=== PATIENT | male | born 1950 | race Caucasian/White ===

== ENCOUNTER 2021-04-21 22:33 | Inpatient (IN) ==
[2021-04-22] MEDS ORDERED: Isovue-370 500 ML BOTTLE IVP ONE ×2 (00:13→02:13)
[2021-04-22 01:45] LABS: Basophils % 0.4 %; Eosinophils % 0.3 %; Hematocrit 49.6 % (37.5-50.1); Hemoglobin 16.8 g/dL (12.9-16.9); Immature Granulocytes % 0.6 % (0-4); Lymphocytes % 8.9 %; Mean Corpuscular HGB Conc 33.9 g/dL (31.6-35.5); Mean Corpuscular Hemoglobin 30.4 pg (28.0-33.3); Mean Corpuscular Volume 89.7 fL (83.0-100.0); Mean Platelet Volume 8.6 fL (9.4-12.4); Monocytes # 0.8 K/mcL (0.0-1.3); Monocytes % 7.1 %; Neutrophils # 9.2 K/mcL (1.6-8.9); Platelet Count 208 K/mcL (140-400); Red Blood Count 5.53 M/mcL (4.19-5.50); Red Cell Distribution Width 12.9 % (11.5-14.5); Segmented Neutrophils % 82.7 %; White Blood Count 11.1 K/mcL (4.3-11.1)
[2021-04-22 02:05] LABS: INR 1.4; Prothrombin Time 15.3 Seconds (9.4-12.1)
[2021-04-22 02:09] LABS: Activated Partial Thrombo Time 31.9 Seconds (26.0-36.0)
[2021-04-22 02:16] LABS: VBG HCO3 26 mEq/L (21-27); VBG PCO2 42 mmHg (41-51); VBG PO2 85 mmHg (25-50)
[2021-04-22 03:08] LABS: Alanine Aminotransferase 33 Units/L (7-52); Alkaline Phosphatase 106 Units/L (34-104); Aspartate Amino Transferase 24 Units/L (13-39); BUN/Creatinine Ratio 26 (6-26); Bilirubin,Direct 0.9 mg/dL (0.0-0.2); Bilirubin,Indirect 0.7 mg/dL (0.0-1.0); Bilirubin,Total 1.6 mg/dL (0.3-1.0); Blood Urea Nitrogen 34 mg/dL (8-23); Calcium 9.1 mg/dL (8.6-10.3); Carbon Dioxide 23 mEq/L (23-29); Chloride 100 mEq/L (98-107); Glucose 181 mg/dL (70-105); Osmolality,Calculated 288 (280-300); Potassium 4.3 mEq/L (3.5-5.1); Sodium 133 mEq/L (136-145); Total Protein 7.1 g/dL (6.4-8.9); Troponin I < 0.03 ng/mL (< 0.04); eGFR For African Americans > 60 (> 60); eGFR For Non-African Americans 55 (> 60)
[2021-04-22 03:52] LABS: Albumin 3.1 g/dL (3.5-5.7); Albumin/Globulin Ratio 0.8 (1.1-2.2)
[2021-04-22] MEDS ORDERED: Naloxone 0.4 MG/ML INJ IVP PRN (05:29)
[2021-04-22] MEDS ORDERED: *HR* Promethazine 25 MG/ML VIAL IM PRN (05:29)
[2021-04-22] MEDS ORDERED: Melatonin 3 MG TABLET PO PRN (05:29)
[2021-04-22] MEDS ORDERED: Ondansetron 4 MG/2 ML VIAL IVP PRN (05:29)
[2021-04-22] MEDS ORDERED: Remdesivir 200 MG in 0.9 % Sodium Chloride 100 ML IVPB ONE (07:00)
[2021-04-22] MEDS: *HR* Enoxaparin 40 MG/0.4 ML SYRINGE SQ SCH (07:22)
[2021-04-22] MEDS ORDERED: Dexamethasone Sodium Phos/PF 10 MG/ML VIAL IVP SCH (09:00)
[2021-04-22 09:19] LABS: Estimated Average Glucose 157 mg/dl; Hemoglobin A1C 7.1 %
[2021-04-22 12:55] LABS: C-Reactive Protein 300 mg/L (Less than 10)
[2021-04-22] MEDS ORDERED: Dexamethasone Sodium Phos/PF 10 MG/ML VIAL IVP ONE (15:15)
[2021-04-23] MEDS: *HR* Enoxaparin 40 MG/0.4 ML SYRINGE SQ SCH (06:02)
[2021-04-23] MEDS: Remdesivir 100 MG in 0.9 % Sodium Chloride 100 ML IVPB SCH (06:02)
[2021-04-23] MEDS: Dexamethasone Sodium Phos/PF 10 MG/ML VIAL IVP SCH (09:29)
[2021-04-23 09:53] LABS: Basophils % 0.2 %; Hematocrit 50.4 % (37.5-50.1); Hemoglobin 16.9 g/dL (12.9-16.9); Immature Granulocytes % 0.8 % (0-4); Lymphocytes # 0.7 K/mcL (0.6-4.6); Lymphocytes % 5.3 %; Mean Corpuscular HGB Conc 33.5 g/dL (31.6-35.5); Mean Corpuscular Hemoglobin 30.3 pg (28.0-33.3); Mean Corpuscular Volume 90.3 fL (83.0-100.0); Mean Platelet Volume 8.8 fL (9.4-12.4); Monocytes # 0.7 K/mcL (0.0-1.3); Monocytes % 5.6 %; Neutrophils # 11.1 K/mcL (1.6-8.9); Platelet Count 252 K/mcL (140-400); Red Blood Count 5.58 M/mcL (4.19-5.50); Red Cell Distribution Width 12.9 % (11.5-14.5); Segmented Neutrophils % 88.1 %; White Blood Count 12.6 K/mcL (4.3-11.1)
[2021-04-23 09:57] LABS: INR 1.3; Prothrombin Time 14.4 Seconds (9.4-12.1)
[2021-04-23 10:36] LABS: Albumin 3.1 g/dL (3.5-5.7); Albumin/Globulin Ratio 0.8 (1.1-2.2); Bilirubin,Direct 0.4 mg/dL (0.0-0.2); Bilirubin,Indirect 0.4 mg/dL (0.0-1.0); Bilirubin,Total 0.8 mg/dL (0.3-1.0); Total Protein 7.1 g/dL (6.4-8.9)
[2021-04-23 11:37] LABS: Alanine Aminotransferase 50 Units/L (7-52); Albumin/Globulin Ratio 0.7 (1.1-2.2); Alkaline Phosphatase 105 Units/L (34-104); Aspartate Amino Transferase 34 Units/L (13-39); BUN/Creatinine Ratio 37 (6-26); Bilirubin,Total 0.8 mg/dL (0.3-1.0); Blood Urea Nitrogen 47 mg/dL (8-23); C-Reactive Protein 274 mg/L (Less than 10); Calcium 9.4 mg/dL (8.6-10.3); Carbon Dioxide 23 mEq/L (23-29); Chloride 101 mEq/L (98-107); Ferritin > 1500 ng/mL (20-250); Globulin 4.1 g/dL (2.4-3.5); Glucose 294 mg/dL (70-105); Lactate Dehydrogenase 297 Units/L (140-271); Magnesium 2.4 mg/dL (1.6-2.6); Osmolality,Calculated 301 (280-300); Potassium 4.5 mEq/L (3.5-5.1); Sodium 134 mEq/L (136-145); Total Protein 7.1 g/dL (6.4-8.9); eGFR For African Americans > 60 (> 60); eGFR For Non-African Americans 56 (> 60)
[2021-04-24 06:31] LABS: Basophils % 0.1 %; Eosinophils % 0.1 %; Hematocrit 51.2 % (37.5-50.1); Hemoglobin 17.4 g/dL (12.9-16.9); Immature Granulocytes % 0.8 % (0-4); Lymphocytes # 0.7 K/mcL (0.6-4.6); Lymphocytes % 5.9 %; Mean Corpuscular Hemoglobin 30.7 pg (28.0-33.3); Mean Corpuscular Volume 90.5 fL (83.0-100.0); Mean Platelet Volume 8.6 fL (9.4-12.4); Monocytes # 0.6 K/mcL (0.0-1.3); Monocytes % 4.8 %; Neutrophils # 10.2 K/mcL (1.6-8.9); Platelet Count 286 K/mcL (140-400); Red Blood Count 5.66 M/mcL (4.19-5.50); Segmented Neutrophils % 88.3 %; White Blood Count 11.6 K/mcL (4.3-11.1)
[2021-04-24] MEDS: *HR* Enoxaparin 40 MG/0.4 ML SYRINGE SQ SCH (06:31)
[2021-04-24] MEDS: Remdesivir 100 MG in 0.9 % Sodium Chloride 100 ML IVPB SCH (06:31)
[2021-04-24 06:54] LABS: Alanine Aminotransferase 53 Units/L (7-52); Albumin 2.9 g/dL (3.5-5.7); Albumin/Globulin Ratio 0.8 (1.1-2.2); Alkaline Phosphatase 98 Units/L (34-104); Aspartate Amino Transferase 25 Units/L (13-39); BUN/Creatinine Ratio 43 (6-26); Bilirubin,Total 0.8 mg/dL (0.3-1.0); Blood Urea Nitrogen 49 mg/dL (8-23); Calcium 9.4 mg/dL (8.6-10.3); Carbon Dioxide 25 mEq/L (23-29); Chloride 102 mEq/L (98-107); Globulin 3.8 g/dL (2.4-3.5); Glucose 259 mg/dL (70-105); Osmolality,Calculated 300 (280-300); Potassium 4.5 mEq/L (3.5-5.1); Sodium 134 mEq/L (136-145); Total Protein 6.7 g/dL (6.4-8.9); eGFR For African Americans > 60 (> 60); eGFR For Non-African Americans > 60 (> 60)
[2021-04-24] MEDS: Dexamethasone Sodium Phos/PF 10 MG/ML VIAL IVP SCH (08:01)
[2021-04-24] MEDS ORDERED: Saline Nasal Spray 44 ML BOTTLE NS PRN (15:55)
[2021-04-24] MEDS ORDERED: Saliva Stimulant 44.3ml BOTTLE PO PRN (15:56)
[2021-04-24] MEDS ORDERED: Dextrose Gel 15 GM/37.5 ML TUBE PO PRN ×2 (19:24)
[2021-04-24] MEDS ORDERED: *HR* Dextrose 50 % in Water (Syg) 50 ML SYRINGE IVP PRN (19:24)
[2021-04-24] MEDS ORDERED: D5% in Water 1,000 ML IVC PRN (19:24)
[2021-04-24] MEDS: Insulin DETEMIR 100 UNIT/ML X5UNITS SUBQ SCH (20:46)
[2021-04-24 21:33] LABS: Estimated Average Glucose 163 mg/dl; Hemoglobin A1C 7.3 %
[2021-04-25 03:47] LABS: Basophils % 0.2 %; Eosinophils % 0.4 %; Hematocrit 53.7 % (37.5-50.1); Hemoglobin 18.4 g/dL (12.9-16.9); Immature Granulocytes % 0.7 % (0-4); Lymphocytes # 0.8 K/mcL (0.6-4.6); Lymphocytes % 7.6 %; Mean Corpuscular HGB Conc 34.3 g/dL (31.6-35.5); Mean Corpuscular Volume 90.6 fL (83.0-100.0); Mean Platelet Volume 8.8 fL (9.4-12.4); Monocytes # 0.6 K/mcL (0.0-1.3); Monocytes % 6.1 %; Neutrophils # 8.6 K/mcL (1.6-8.9); Platelet Count 208 K/mcL (140-400); Red Blood Count 5.93 M/mcL (4.19-5.50); Red Cell Distribution Width 12.7 % (11.5-14.5); White Blood Count 10.1 K/mcL (4.3-11.1)
[2021-04-25 04:05] LABS: Alanine Aminotransferase 46 Units/L (7-52); Albumin 2.9 g/dL (3.5-5.7); Albumin/Globulin Ratio 0.8 (1.1-2.2); Alkaline Phosphatase 97 Units/L (34-104); Aspartate Amino Transferase 17 Units/L (13-39); BUN/Creatinine Ratio 40 (6-26); Bilirubin,Total 0.9 mg/dL (0.3-1.0); Blood Urea Nitrogen 46 mg/dL (8-23); Calcium 9.1 mg/dL (8.6-10.3); Carbon Dioxide 25 mEq/L (23-29); Chloride 102 mEq/L (98-107); Globulin 3.8 g/dL (2.4-3.5); Glucose 255 mg/dL (70-105); Osmolality,Calculated 299 (280-300); Potassium 4.6 mEq/L (3.5-5.1); Sodium 134 mEq/L (136-145); Total Protein 6.7 g/dL (6.4-8.9); eGFR For African Americans > 60 (> 60); eGFR For Non-African Americans > 60 (> 60)
[2021-04-25] MEDS: *HR* Enoxaparin 40 MG/0.4 ML SYRINGE SQ SCH (05:48)
[2021-04-25] MEDS: Remdesivir 100 MG in 0.9 % Sodium Chloride 100 ML IVPB SCH (05:48)
[2021-04-25] MEDS: Dexamethasone Sodium Phos/PF 10 MG/ML VIAL IVP SCH (09:56)
[2021-04-25] MEDS: Cholecalciferol (D-3) 1,000 UNIT (25MCG) TABLET PO SCH (09:57)
[2021-04-25] MEDS: Insulin LISPRO 300 UNITS/3 ML VIAL SUBQ SCH ×3 (10:07→22:22)
[2021-04-25] MEDS: Insulin DETEMIR 100 UNIT/ML X5UNITS SUBQ SCH ×2 (10:11→22:22)
[2021-04-26 04:18] LABS: Basophils % 0.2 %; Eosinophils # 0.1 K/mcL (0.0-0.6); Eosinophils % 0.4 %; Hemoglobin 19.1 g/dL (12.9-16.9); Immature Granulocytes % 0.9 % (0-4); Lymphocytes # 0.9 K/mcL (0.6-4.6); Lymphocytes % 7.2 %; Mean Corpuscular HGB Conc 33.5 g/dL (31.6-35.5); Mean Corpuscular Hemoglobin 30.2 pg (28.0-33.3); Mean Corpuscular Volume 90.3 fL (83.0-100.0); Mean Platelet Volume 8.6 fL (9.4-12.4); Monocytes # 0.5 K/mcL (0.0-1.3); Monocytes % 4.4 %; Neutrophils # 10.4 K/mcL (1.6-8.9); Platelet Count 248 K/mcL (140-400); Red Blood Count 6.32 M/mcL (4.19-5.50); Red Cell Distribution Width 12.8 % (11.5-14.5); Segmented Neutrophils % 86.9 %; White Blood Count 11.9 K/mcL (4.3-11.1)
[2021-04-26 04:22] LABS: Hematocrit 57.1 % (37.5-50.1)
[2021-04-26 04:38] LABS: BUN/Creatinine Ratio 36 (6-26); Blood Urea Nitrogen 44 mg/dL (8-23); Calcium 9.2 mg/dL (8.6-10.3); Carbon Dioxide 24 mEq/L (23-29); Chloride 103 mEq/L (98-107); Glucose 199 mg/dL (70-105); Osmolality,Calculated 297 (280-300); Potassium 4.6 mEq/L (3.5-5.1); Sodium 135 mEq/L (136-145); eGFR For African Americans > 60 (> 60); eGFR For Non-African Americans 59 (> 60)
[2021-04-26] MEDS: Remdesivir 100 MG in 0.9 % Sodium Chloride 100 ML IVPB SCH (06:40)
[2021-04-26] MEDS: *HR* Enoxaparin 40 MG/0.4 ML SYRINGE SQ SCH (06:40)
[2021-04-26] MEDS: Insulin LISPRO 300 UNITS/3 ML VIAL SUBQ SCH ×3 (07:44→16:29)
[2021-04-26] MEDS: Cholecalciferol (D-3) 1,000 UNIT (25MCG) TABLET PO SCH (07:45)
[2021-04-26] MEDS: Dexamethasone Sodium Phos/PF 10 MG/ML VIAL IVP SCH (07:45)
[2021-04-26] MEDS: Insulin DETEMIR 100 UNIT/ML X5UNITS SUBQ SCH ×2 (07:49→20:38)
[2021-04-27 01:30] LABS: Hemoglobin 19.9 g/dL (12.9-16.9); Mean Corpuscular HGB Conc 34.2 g/dL (31.6-35.5); Mean Corpuscular Volume 90.7 fL (83.0-100.0); Mean Platelet Volume 8.7 fL (9.4-12.4); Platelet Count 218 K/mcL (140-400); Red Blood Count 6.42 M/mcL (4.19-5.50); White Blood Count 15.2 K/mcL (4.3-11.1)
[2021-04-27 01:36] LABS: Hematocrit 58.2 % (37.5-50.1)
[2021-04-27 01:41] LABS: INR 1.3; Prothrombin Time 14.1 Seconds (9.4-12.1)
[2021-04-27 01:45] LABS: Alanine Aminotransferase 46 Units/L (7-52); Albumin 3.2 g/dL (3.5-5.7); Albumin/Globulin Ratio 0.9 (1.1-2.2); Alkaline Phosphatase 107 Units/L (34-104); Aspartate Amino Transferase 21 Units/L (13-39); BUN/Creatinine Ratio 38 (6-26); Bilirubin,Direct 0.2 mg/dL (0.0-0.2); Bilirubin,Indirect 0.8 mg/dL (0.0-1.0); Blood Urea Nitrogen 43 mg/dL (8-23); C-Reactive Protein 22 mg/L (Less than 10); Calcium 9.2 mg/dL (8.6-10.3); Carbon Dioxide 23 mEq/L (23-29); Chloride 102 mEq/L (98-107); Globulin 3.5 g/dL (2.4-3.5); Glucose 227 mg/dL (70-105); Magnesium 2.2 mg/dL (1.6-2.6); Osmolality,Calculated 294 (280-300); Phosphorous 3.5 mg/dL (2.7-4.5); Potassium 4.4 mEq/L (3.5-5.1); Sodium 133 mEq/L (136-145); Total Protein 6.7 g/dL (6.4-8.9); eGFR For African Americans > 60 (> 60); eGFR For Non-African Americans > 60 (> 60)
[2021-04-27] MEDS: *HR* Enoxaparin 40 MG/0.4 ML SYRINGE SQ SCH (05:49)
[2021-04-27] MEDS: Insulin LISPRO 300 UNITS/3 ML VIAL SUBQ SCH ×3 (07:56→16:44)
[2021-04-27] MEDS: Dexamethasone Sodium Phos/PF 10 MG/ML VIAL IVP SCH (07:57)
[2021-04-27] MEDS: Insulin DETEMIR 100 UNIT/ML X5UNITS SUBQ SCH ×2 (07:57→21:26)
[2021-04-27] MEDS: Cholecalciferol (D-3) 1,000 UNIT (25MCG) TABLET PO SCH (07:57)
[2021-04-27] MEDS: Multivit/Ca/Min/Fe/FA 1 TAB TABLET PO SCH (13:19)
[2021-04-27] MEDS: Zinc Sulfate 220 MG CAPSULE PO SCH (13:19)
[2021-04-27] MEDS: *HR* Enoxaparin 100 MG/ML SYRINGE SQ SCH (16:44)
[2021-04-28] MEDS: *HR* Enoxaparin 100 MG/ML SYRINGE SQ SCH ×2 (06:04→17:55)
[2021-04-28] MEDS: Dexamethasone Sodium Phos/PF 10 MG/ML VIAL IVP SCH (08:11)
[2021-04-28] MEDS: Insulin DETEMIR 100 UNIT/ML X5UNITS SUBQ SCH ×2 (08:12→20:13)
[2021-04-28] MEDS: Insulin LISPRO 300 UNITS/3 ML VIAL SUBQ SCH ×3 (08:12→17:55)
[2021-04-28] MEDS: Multivit/Ca/Min/Fe/FA 1 TAB TABLET PO SCH (08:13)
[2021-04-28] MEDS: Cholecalciferol (D-3) 1,000 UNIT (25MCG) TABLET PO SCH (08:13)
[2021-04-28] MEDS: Zinc Sulfate 220 MG CAPSULE PO SCH (08:13)
[2021-04-28] MEDS ORDERED: Lidocaine -MPF 1% 5 ML AMPUL INFILT ONE (13:25)
[2021-04-28] MEDS: Pantoprazole 40 MG VIAL IVP SCH (17:54)
[2021-04-29 03:11] LABS: Hemoglobin 21.5 g/dL (12.9-16.9); Mean Corpuscular HGB Conc 34.8 g/dL (31.6-35.5); Mean Corpuscular Hemoglobin 30.5 pg (28.0-33.3); Mean Corpuscular Volume 87.8 fL (83.0-100.0); Mean Platelet Volume 9.1 fL (9.4-12.4); Platelet Count 232 K/mcL (140-400); Red Blood Count 7.04 M/mcL (4.19-5.50); White Blood Count 25.5 K/mcL (4.3-11.1)
[2021-04-29 03:16] LABS: Hematocrit 61.8 % (37.5-50.1)
[2021-04-29 03:29] LABS: BUN/Creatinine Ratio 41 (6-26); Blood Urea Nitrogen 51 mg/dL (8-23); Calcium 9.5 mg/dL (8.6-10.3); Carbon Dioxide 26 mEq/L (23-29); Chloride 101 mEq/L (98-107); Glucose 190 mg/dL (70-105); Magnesium 2.3 mg/dL (1.6-2.6); Osmolality,Calculated 299 (280-300); Potassium 5.4 mEq/L (3.5-5.1); Sodium 135 mEq/L (136-145); eGFR For African Americans > 60 (> 60); eGFR For Non-African Americans 58 (> 60)
[2021-04-29] MEDS: *HR* Enoxaparin 100 MG/ML SYRINGE SQ SCH ×2 (05:46→16:54)
[2021-04-29] MEDS: Cholecalciferol (D-3) 1,000 UNIT (25MCG) TABLET PO SCH (08:32)
[2021-04-29] MEDS: Multivit/Ca/Min/Fe/FA 1 TAB TABLET PO SCH (08:32)
[2021-04-29] MEDS: Zinc Sulfate 220 MG CAPSULE PO SCH (08:32)
[2021-04-29] MEDS: Insulin DETEMIR 100 UNIT/ML X5UNITS SUBQ SCH ×3 (08:32→20:07)
[2021-04-29] MEDS: Insulin LISPRO 300 UNITS/3 ML VIAL SUBQ SCH ×3 (08:32→16:53)
[2021-04-29] MEDS: Pantoprazole 40 MG VIAL IVP SCH (08:33)
[2021-04-29] MEDS: Dexamethasone Sodium Phos/PF 10 MG/ML VIAL IVP SCH (08:33)
[2021-04-29] MEDS: Furosemide 20 MG/2 ML VIAL IVP SCH (14:50)
[2021-04-29] MEDS: Melatonin 3 MG TABLET PO SCH (20:05)
[2021-04-30 04:01] LABS: Hemoglobin 21.3 g/dL (12.9-16.9)
[2021-04-30 04:02] LABS: Mean Corpuscular HGB Conc 34.3 g/dL (31.6-35.5); Mean Corpuscular Hemoglobin 30.1 pg (28.0-33.3); Mean Corpuscular Volume 87.8 fL (83.0-100.0); Mean Platelet Volume 8.9 fL (9.4-12.4); Platelet Count 239 K/mcL (140-400); Red Blood Count 7.07 M/mcL (4.19-5.50)
[2021-04-30 04:04] LABS: Hematocrit 62.1 % (37.5-50.1)
[2021-04-30 04:58] LABS: BUN/Creatinine Ratio 48 (6-26); Blood Urea Nitrogen 60 mg/dL (8-23); Calcium 9.6 mg/dL (8.6-10.3); Carbon Dioxide 28 mEq/L (23-29); Chloride 101 mEq/L (98-107); Glucose 144 mg/dL (70-105); Osmolality,Calculated 299 (280-300); Potassium 5.3 mEq/L (3.5-5.1); Sodium 135 mEq/L (136-145); eGFR For African Americans > 60 (> 60); eGFR For Non-African Americans 57 (> 60)
[2021-04-30] MEDS: *HR* Enoxaparin 100 MG/ML SYRINGE SQ SCH ×2 (05:27→16:55)
[2021-04-30] MEDS: Insulin LISPRO 300 UNITS/3 ML VIAL SUBQ SCH ×3 (07:53→17:09)
[2021-04-30] MEDS: Pantoprazole 40 MG VIAL IVP SCH (08:33)
[2021-04-30] MEDS: Insulin DETEMIR 100 UNIT/ML X5UNITS SUBQ SCH (08:33)
[2021-04-30] MEDS: Furosemide 20 MG/2 ML VIAL IVP SCH (08:34)
[2021-04-30] MEDS: Dexamethasone Sodium Phos/PF 10 MG/ML VIAL IVP SCH (08:34)
[2021-04-30] MEDS: Zinc Sulfate 220 MG CAPSULE PO SCH (08:46)
[2021-04-30] MEDS: Cholecalciferol (D-3) 1,000 UNIT (25MCG) TABLET PO SCH (08:46)
[2021-04-30] MEDS: Multivit/Ca/Min/Fe/FA 1 TAB TABLET PO SCH (08:47)
[2021-04-30] MEDS ORDERED: SODIUM ZIRCONIUM CYCLOSILICATE 5 GM POWD.PACK PO ONE (11:23)
[2021-04-30] MEDS: Calcium Gluconate 1gm/50mL 1 GM/50 ML BAG IVPB SCH ×2 (11:55→12:59)
[2021-04-30] MEDS: Piperacillin/Tazobactam 3.375 GM in 0.9 % Sodium Chloride Mini Bag 100 ML IVPB SCH ×2 (16:56→22:57)
[2021-04-30] MEDS: Melatonin 3 MG TABLET PO SCH (22:57)
[2021-05-01] MEDS: Insulin DETEMIR 100 UNIT/ML X5UNITS SUBQ SCH ×3 (01:23→20:16)
[2021-05-01 03:46] LABS: Hemoglobin 20.5 g/dL (12.9-16.9); Mean Platelet Volume 9.4 fL (9.4-12.4)
[2021-05-01 03:47] LABS: Mean Corpuscular HGB Conc 34.7 g/dL (31.6-35.5); Mean Corpuscular Hemoglobin 30.7 pg (28.0-33.3); Mean Corpuscular Volume 88.6 fL (83.0-100.0); Platelet Count 218 K/mcL (140-400); Red Blood Count 6.67 M/mcL (4.19-5.50); Red Cell Distribution Width 13.9 % (11.5-14.5); White Blood Count 26.9 K/mcL (4.3-11.1)
[2021-05-01 04:05] LABS: Calcium 9.4 mg/dL (8.6-10.3); Potassium 4.7 mEq/L (3.5-5.1)
[2021-05-01 04:13] LABS: Hematocrit 59.1 % (37.5-50.1)
[2021-05-01] MEDS: *HR* Enoxaparin 100 MG/ML SYRINGE SQ SCH ×2 (04:53→17:57)
[2021-05-01] MEDS: Insulin LISPRO 300 UNITS/3 ML VIAL SUBQ SCH ×4 (08:38→17:02)
[2021-05-01] MEDS: Piperacillin/Tazobactam 3.375 GM in 0.9 % Sodium Chloride Mini Bag 100 ML IVPB SCH ×2 (08:39→15:32)
[2021-05-01] MEDS: Dexamethasone Sodium Phos/PF 10 MG/ML VIAL IVP SCH (08:40)
[2021-05-01] MEDS: Pantoprazole 40 MG VIAL IVP SCH (08:40)
[2021-05-01] MEDS: Multivit/Ca/Min/Fe/FA 1 TAB TABLET PO SCH (08:43)
[2021-05-01] MEDS: Zinc Sulfate 220 MG CAPSULE PO SCH (08:43)
[2021-05-01] MEDS: Cholecalciferol (D-3) 1,000 UNIT (25MCG) TABLET PO SCH (08:43)
[2021-05-01] MEDS ORDERED: *HR* Metoprolol 5 MG/5 ML VIAL IVP ONE (14:09)
[2021-05-01] MEDS ORDERED: DilTIAZem 50 MG/50 ML IV.SOLN IVC SCH ×2 (14:30→18:00)
[2021-05-01] MEDS ORDERED: *HR* Metoprolol 5 MG/5 ML VIAL IVP PRN (15:04)
[2021-05-01] MEDS: Melatonin 3 MG TABLET PO SCH (20:42)
[2021-05-02] MEDS: Piperacillin/Tazobactam 3.375 GM in 0.9 % Sodium Chloride Mini Bag 100 ML IVPB SCH ×2 (00:04→07:39)
[2021-05-02 04:59] LABS: Hemoglobin 19.7 g/dL (12.9-16.9); Mean Corpuscular HGB Conc 33.5 g/dL (31.6-35.5); Mean Corpuscular Hemoglobin 30.1 pg (28.0-33.3); Mean Corpuscular Volume 89.9 fL (83.0-100.0); Mean Platelet Volume 9.3 fL (9.4-12.4); Platelet Count 197 K/mcL (140-400); Red Blood Count 6.54 M/mcL (4.19-5.50); Red Cell Distribution Width 13.9 % (11.5-14.5); White Blood Count 24.6 K/mcL (4.3-11.1)
[2021-05-02 05:10] LABS: Hematocrit 58.8 % (37.5-50.1)
[2021-05-02 05:20] LABS: Calcium 8.8 mg/dL (8.6-10.3); Potassium 4.8 mEq/L (3.5-5.1)
[2021-05-02 06:12] VITALS: BP 108/74; PULSE 103; TEMP 96.4; O2SAT 89
[2021-05-02] MEDS: *HR* Enoxaparin 100 MG/ML SYRINGE SQ SCH (06:13)
[2021-05-02] MEDS: Insulin LISPRO 300 UNITS/3 ML VIAL SUBQ SCH ×2 (07:25→10:21)
[2021-05-02] MEDS: Insulin DETEMIR 100 UNIT/ML X5UNITS SUBQ SCH (07:26)
[2021-05-02] MEDS: Multivit/Ca/Min/Fe/FA 1 TAB TABLET PO SCH (07:34)
[2021-05-02] MEDS: Zinc Sulfate 220 MG CAPSULE PO SCH (07:34)
[2021-05-02] MEDS: Cholecalciferol (D-3) 1,000 UNIT (25MCG) TABLET PO SCH (07:34)
[2021-05-02] MEDS: Pantoprazole 40 MG VIAL IVP SCH (07:39)
[2021-05-02] MEDS: Morphine Sulfate 2 MG/ML SYRINGE IVP PRN ×2 (09:31→12:56)
[2021-05-02] MEDS ORDERED: *HR* LORazepam 2 MG/ML VIAL IVP PRN (11:00)
[2021-05-02] MEDS ORDERED: Haloperidol Lactate 5 MG/ML VIAL IVP PRN (11:00)
[2021-05-02] MEDS ORDERED: FentaNYL (PF) 1,000 MCG/100 ML IV.SOLN IVC SCH (11:00)
[2021-05-02] MEDS ORDERED: Atropine Sulfate 1% 40 DROP/2 ML BOTTLE SL PRN (11:01)
== END 2021-05-02 16:22 | disposition expired | DRG 871 ==
LOC: 2NENU 22:33 → EMEROOARM 22:33 → SUATTDRO 04-22 05:17 → OBSVTOIN 04-22 05:17 → 2NENU 04-22 06:50
PROVIDERS: ADMIT Family Medicine; ATTEND Internal Medicine